=== PATIENT | male | born 1980 | race Caucasian/White ===

== ENCOUNTER 2025-08-09 23:32 | Emergency (ER) | payer SELFPAY ==
[~2025-08-09] VITALS: Ht 182.9 cm; Wt 86.2 kg
[2025-08-09 23:34] VITALS: BP_SYST 136
[2025-08-09 23:40] VITALS: O2SAT 96
[2025-08-09] MEDS ORDERED: IPRATROPIUM BROMIDE 0.5 MG/2.5 ML NEBU ONE (23:51)
[2025-08-09] MEDS ORDERED: ALBUTEROL SULFATE 2.5 MG/3 ML NEBU ONE (23:51)
[2025-08-09 23:55] VITALS: O2SAT 99
[2025-08-10] MEDS: IPRATROPIUM BROMIDE 0.5 MG/2.5 ML NEBU NEB ONE (00:01)
[2025-08-10] MEDS: ALBUTEROL SULFATE 2.5 MG/3 ML NEBU NEB ONE ×2 (00:01→00:22)
[2025-08-10 00:05] VITALS: O2SAT 96
[2025-08-10] MEDS ORDERED: PRED20TA PO (00:18)
[2025-08-10] MEDS ORDERED: ALBU8.5H8 IH (00:18)
[2025-08-10] MEDS ORDERED: ALBUTEROL SULFATE 2.5 MG/3 ML NEBU ONE (00:19)
[2025-08-10 00:20] VITALS: O2SAT 99
[2025-08-10 00:59] VITALS: BP 136/84; O2SAT 99
== END 2025-08-10 00:59 | disposition home or self-care (01) ==
LOC: ER 23:36
DX: J98.01 Acute bronchospasm (principal); J44.89 Other specified chronic obstructive pulmonary disease; F17.290 Nicotine dependence, other tobacco product, uncomplicated; F17.210 Nicotine dependence, cigarettes, uncomplicated; Z79.52 Long term (current) use of systemic steroids; Z20.822 Contact with and (suspected) exposure to COVID-19
CPT/HCPCS: 99285; 71045; 99406; 87426; 94640 ×2; J7512; A4606; A4663; J3590